=== PATIENT | male | born 1980 | race Caucasian/White ===

== ENCOUNTER 2017-05-13 09:55 | Outpatient (CLI) | payer BC | END 2017-05-13 17:00 | disposition home or self-care (01) | LOC: HPC 09:55 | DX: K40.90 Unilateral inguinal hernia, without obstruction or gangrene, not specified as recurrent (principal); E78.5 Hyperlipidemia, unspecified; Z72.0 Tobacco use; Z85.038 Personal history of other malignant neoplasm of large intestine | CPT/HCPCS: Z7500 ==

== ENCOUNTER 2017-06-08 10:28 | Day surgery (SDC) | payer BC ==
[~2017-06-08 10:28] MED LIST: CEFAZOLIN 2 GM/50 ML (PMX) 50 ML IVPB; D5W-0.45 NACL + KCL 20 MEQ 1,000 ML IV; NACL 0.9% 3 ML SYG IV
[2017-06-08] MEDS ORDERED: MEPERIDINE 100 MG INJ (12:08)
[2017-06-08] MEDS ORDERED: GLYCOPYRROLATE 0.4 MG INJ ×3 (12:08→12:40)
[2017-06-08] MEDS ORDERED: SUCCINYLCHOLINE CHLORIDE 100 MG/5 ML SYG IV (12:08)
[2017-06-08] MEDS ORDERED: LIDOCAINE 2% (SDV) 5 ML INJ (12:08)
[2017-06-08] MEDS ORDERED: ROCURONIUM 50 MG INJ ×2 (12:08→13:36)
[2017-06-08] MEDS ORDERED: NEOSTIGMINE 3 MG/3 ML SYRINGE ×2 (12:08→12:40)
[2017-06-08] MEDS ORDERED: PROPOFOL 20 ML (12:08)
[2017-06-08] MEDS ORDERED: CEFAZOLIN 1 GM INJ (12:11)
[2017-06-08] MEDS ORDERED: HYDROmorphONE (0.2 MG/ML) 10ML SYG IV ×2 (12:30)
[2017-06-08] MEDS ORDERED: OXYCODONE/ACETAMINOPHEN (5/325) TAB PO (12:30)
[2017-06-08] MEDS ORDERED: LABETALOL HCL 20MG INJ IV (12:30)
[2017-06-08] MEDS ORDERED: MEPERIDINE 25 MG INJ IV (12:30)
[2017-06-08] MEDS ORDERED: MIDAZOLAM 1 MG/ML 2 ML INJ IV (12:30)
[2017-06-08] MEDS ORDERED: METOCLOPRAMIDE 10 MG INJ IV (12:30)
[2017-06-08] MEDS ORDERED: hydrALAzine 20 MG INJ IV (12:30)
[2017-06-08] MEDS ORDERED: EPHEDrine SULFATE 50 MG/5 ML SYG IV (12:30)
[2017-06-08] MEDS ORDERED: FENTAnyl 50 MCG/ML VIAL IV ×2 (12:30)
[2017-06-08] MEDS: BUPIVACAINE 0.25%/EPI (SDV) 30 ML INJ (12:51)
[2017-06-08] MEDS ORDERED: DOCUSATE SODIUM 100 MG CAP PO (14:00)
[2017-06-08] MEDS ORDERED: HYDROCODONE/APAP (5/325) TAB PO ×2 (14:00)
[2017-06-08] MEDS ORDERED: BISACODYL 10 MG SUPP PR (14:00)
[2017-06-08] MEDS: ONDANSETRON 4 MG INJ IV (14:04)
[2017-06-08] MEDS: FENTAnyl 50 MCG/ML VIAL IV ×2 (14:04→14:13)
[2017-06-08] MEDS: DIPHENHYDRAMINE 50 MG INJ IV (14:08)
[2017-06-08] MEDS: HYDROmorphONE (0.2 MG/ML) 10ML SYG IV ×2 (14:32→14:56)
[2017-06-08] MEDS: OXYCODONE/ACETAMINOPHEN (5/325) TAB PO (15:40)
== END 2017-06-08 17:00 | disposition home or self-care (01) ==
LOC: SDS 10:28
DX: K40.90 Unilateral inguinal hernia, without obstruction or gangrene, not specified as recurrent (principal); E78.5 Hyperlipidemia, unspecified; Z87.891 Personal history of nicotine dependence
CPT/HCPCS: 49505; 71045

== ENCOUNTER 2017-06-17 15:40 | Outpatient (CLI) | payer BC | END 2017-06-17 17:00 | disposition home or self-care (01) | LOC: HPC 17:00 | DX: Z09 Encounter for follow-up examination after completed treatment for conditions other than malignant neoplasm (principal); K40.90 Unilateral inguinal hernia, without obstruction or gangrene, not specified as recurrent; N50.811 Right testicular pain; N50.89 Other specified disorders of the male genital organs | CPT/HCPCS: Z7500 ==